=== PATIENT | male | born 1970 | race American Indian/Alaskan Native ===

== ENCOUNTER 2017-01-08 09:40 | Emergency (ER) | payer BC ==
[2017-01-08 09:53] VITALS: BP 135/96
--- NOTE | 2017-01-08 11:21 | Emergency Department Report ---
HPI - General Chief Complaint: Pain General Time Seen by Provider: 01/08/17 10:49 - HPI HPI: Patient here complaining of body pain and cold like symptoms for months. 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 He said he is taking over-the- counter allergy medication and it's not helping. Denies any fever or chills. Denies any nausea vomiting. Denies any chest pain or shortness of breath. Generalized aching at 8 out of 10. He reports nasal congestion and occasional cough that is worse at night. ED Past Medical Hx - Past Medical History Previous Medical History?: No - Surgical History Past Surgical History?: Yes Additional Surgical History: L ankle - Family History Family history: no significant - Social History Smoking Status: Current Every Day Smoker Substance Use Type: Alcohol, Non Opiate Pain, Other - Medications Home Medications: Home Medications Medication Instructions Recorded Confirmed Last Taken Type Ondansetron [Zofran Odt] 4 mg PO Q8HR #12 tab.rapdis 06/26/16 Unknown Rx Azithromycin [Zithromax Z-JOSIAH] 250 mg PO DAILY #6 tab 01/08/17 Unknown Rx Cetirizine HCl [ZyrTEC] 10 mg PO QDAY #14 capsule 01/08/17 Unknown Rx Fluticasone [Flonase] 1 spray NS QDAY #1 bottle 01/08/17 Unknown Rx Ibuprofen [Motrin] 600 mg PO Q8H PRN #15 tablet 01/08/17 Unknown Rx guaiFENesin/CODEINE [Robitussin AC] 10 ml PO QHS PRN #70 ml 01/08/17 Unknown Rx ED Review of Systems ROS: Stated complaint: BODY PAIN Other details as noted in HPI Comment: All other systems reviewed and negative Constitutional: denies: chills, fever Eyes: denies: eye pain, eye discharge ENT: congestion. denies: throat pain Respiratory: cough. denies: shortness of breath, SOB with exertion, SOB at rest , stridor, wheezing Cardiovascular: denies: chest pain, palpitations, edema, syncope Gastrointestinal: denies: abdominal pain, nausea, vomiting Musculoskeletal: arthralgia. denies: back pain Skin: denies: rash Neurological: denies: headache, weakness, numbness, paresthesias Physical Exam - Physical Exam Vital Signs: Vital Signs 01/08/17 09:50 Temperature 98.9 F Pulse Rate 64 Respiratory 20 Rate Blood Pressure 135/96 O2 Sat by Pulse 100 Oximetry General: This is a 46-year-old male well-nourished well-developed in no acute distress Physical Exam: Head: Normocephalic atraumatic Mouth: Moist, no pharyngeal exudate or erythema. Uvula is midline and oral airway is patent. No gingival enlargement or dental tenderness. No facial swelling. No peritonsillar abscesses. Neck: Supple, no C-spine tenderness, no tracheal deviation. Nontender to palpate. no adenopathy Ears: Bilateral TMs congested without erythema .bilateral EAC without any redness swelling or drainage Eyes: Bilateral pupils equal and reactive to light, bilateral EOM intact. Bilateral sclera and conjunctiva without injection. Normal accommodation Nose: Mucosa moist, positive congestion with erythema. Positive clear drainage. maxillary and frontal sinus tender to palpate. Lungs: Clear to auscultate bilaterally no rhonchi wheezes or rales. Normal work of breathing Abdomen: Soft, nontender to palpate. Normal bowel sounds in all quadrant. No CVA tenderness bilaterally extremity; No CCE. +2 pulses. No neurovascular compromise Cardiovascular: S1-S2, regular rate rhythm. No murmurs. Skin: clean Dry and intact no rash no lesions Psych: Normal mood and behavior ED Course Vital Signs 01/08/17 09:50 Temperature 98.9 F Pulse Rate 64 Respiratory 20 Rate Blood Pressure 135/96 O2 Sat by Pulse 100 Oximetry - Reevaluation(s) Reevaluation #1: 01/08/17 11:29 Patient stable throughout ED stay ED Medical Decision Making - Medical Decision Making ED course: I discussed the patient that he has sinus infection and will be treated with antibiotic and other medication. Patient was understanding of discharge diagnoses and treatment plan. He is been symptomatic for 2 months and has tried [id number] medication without any relief. Patient discharged home to follow up with his primary care physician which she does have one in one week. Discharged home with prescription for motrin, Zithromax, Flonase, Zyrtec and guaifenesin with codeine Critical care attestation.: If time is entered above; I have spent that time in minutes in the direct care of this critically ill patient, excluding procedure time. ED Disposition Clinical Impression: Cough Acute sinusitis Qualifiers: Sinusitis location: unspecified location Recurrence: not specified as recurrent Qualified Code(s): J01.90 - Acute sinusitis, unspecified Disposition: DISCHARGED TO HOME OR SELFCARE Is pt being admited?: No Does the pt Need Aspirin: No Condition: Stable Instructions: Sinusitis (ED), Acute Cough (ED) Additional Instructions: Take medication as prescribed Follow-up with your primary care physician in 7 days flush nostrils out with saline nasal wash Please do not drive or operate motor vehicle while taking cough medicine as this medication will cause drowsiness. Prescriptions: guaiFENesin/CODEINE [Robitussin AC] 10 ml PO QHS PRN #70 ml PRN Reason: Cough Azithromycin [Zithromax Z-JOSIAH] 250 mg PO DAILY #6 tab Cetirizine HCl [ZyrTEC] 10 mg PO QDAY #14 capsule Fluticasone [Flonase] 1 spray NS QDAY #1 bottle Ibuprofen [Motrin] 600 mg PO Q8H PRN #15 tablet PRN Reason: Pain Referrals: PRIMARY CARE, [Primary Care Provider] - 01/15/17 [facility] [Outside] - 01/15/17 Forms: Work/School Release Form(ED)
== END 2017-01-08 12:07 | disposition home or self-care (01) ==
LOC: ED 09:40
DX: J01.90 Acute sinusitis, unspecified (principal); F17.200 Nicotine dependence, unspecified, uncomplicated; Z79.899 Other long term (current) drug therapy; Z79.1 Long term (current) use of non-steroidal anti-inflammatories (NSAID); Z98.890 Other specified postprocedural states
CPT/HCPCS: 99282

== ENCOUNTER 2019-09-28 09:25 | Emergency (ER) | payer SELFPAY ==
[2019-09-28 09:30] VITALS: BP 139/100
--- NOTE | 2019-09-28 09:56 | Emergency Department Report ---
Minor Respiratory - HPI Chief Complaint: Upper Respiratory Infection Stated Complaint: WEAK/VOMIT/BODY PAIN Time Seen by Provider: 09/28/19 09:34 Duration: 3 Days Pain Location: Nose Severity: moderate Minor Respiratory: Yes Able to Tolerate Fluids, Yes Cough, Yes Sick Contacts, No Rhinorrhea, No Sore Throat, No Ear Pain, No Hemoptysis, No Chest Pain, No Shortness of Breath, No Fever Other History: This is a 49-year-old -[place] male who presents to the emergency room with body aches, nausea, chills, and fatigue for 3 days. Patient also reports a productive cough. Past medical history of hypertension but currently not on medication. Denies taking medication for symptomatic relief. Denies nausea, vomiting, diarrhea, chest pain, shortness of breath, or wheezing. ED Review of Systems ROS: Stated complaint: WEAK/VOMIT/BODY PAIN Other details as noted in HPI Constitutional: chills. denies: fever ENT: congestion. denies: ear pain, throat pain, hearing loss, epistaxis Respiratory: cough. denies: shortness of breath, wheezing Cardiovascular: denies: chest pain, palpitations Endocrine: no symptoms reported Gastrointestinal: denies: abdominal pain, nausea, diarrhea Musculoskeletal: myalgia. denies: back pain, joint swelling, arthralgia Skin: denies: rash, lesions Neurological: denies: headache, weakness, paresthesias Psychiatric: denies: anxiety, depression ED Past Medical Hx - Past Medical History Previous Medical History?: No - Surgical History Past Surgical History?: No Additional Surgical History: L ankle - Social History Smoking Status: Current Every Day Smoker Substance Use Type: Alcohol - Medications Home Medications: Home Medications Medication Instructions Recorded Confirmed Last Taken Type Ondansetron [Zofran Odt] 4 mg PO Q8HR #12 tab.rapdis 06/26/16 Unknown Rx Azithromycin [Zithromax Z-JOSIAH] 250 mg PO DAILY #6 tab 01/08/17 Unknown Rx Ibuprofen [Motrin] 600 mg PO Q8H PRN #15 tablet 01/08/17 Unknown Rx guaiFENesin/CODEINE [Robitussin AC] 10 ml PO QHS PRN #70 ml 01/08/17 Unknown Rx Cyclobenzaprine [Flexeril] 10 mg PO QHS PRN #10 tablet 03/16/19 Unknown Rx Ibuprofen [Motrin] 600 mg PO Q8H PRN #20 tablet 03/16/19 Unknown Rx Benzonatate [Tessalon Perles] 100 mg PO Q8HR PRN #30 capsule 09/28/19 Unknown Rx Cetirizine HCl [ZyrTEC 10mg cap] 10 mg PO QDAY #20 capsule 09/28/19 Unknown Rx Fluticasone [Flonase] 1 spray NS QDAY #1 bottle 09/28/19 Unknown Rx guaiFENesin [Guaifenesin ER] 1,200 mg PO DAILY #14 tab.er.12h 09/28/19 Unknown Rx Minor Respiratory Exam - Exam General: Vital signs noted. No distress. Alert and acting appropriately. HEENT: Yes Pharyngeal Erythema (erythematous posterior pharynx, uvula midline without swelling), Yes Moist Mucous Membranes, Yes Rhinorrhea (turbinates congested with clear discharge), No Pharyngeal Exudates, No Conjuctival Injection, No Frontal Tenderness, No Maxillary Tenderness Ear: Neither TM Bulge, Neither TM Erythema, Neither EAC Pain, Neither EAC Discharge Neck: Yes Supple, No Adenopathy Lungs: Yes Good Air Exchange, No Wheezes, No Ronchi, No Stridor, No Cough, No Labored Respirations, No Retractions, No Use of Accessory Muscles, No Other Abnormal Lung Sounds Heart: Yes Regular, No Murmur Abdomen: Yes Normal Bowel Sounds, No Tenderness, No Peritoneal Signs Skin: No Rash, No Edema Neurologic: Alert and oriented, no deficits. Musculoskeletal: Unremarkable. ED Course Vital Signs 09/28/19 09:28 Temperature 98.4 F Pulse Rate 98 H Respiratory 16 Rate Blood Pressure 139/100 O2 Sat by Pulse 96 Oximetry ED Medical Decision Making - Radiology Data Radiology results: report reviewed CHEST 2 VIEWS INDICATION / CLINICAL INFORMATION: cough. COMPARISON: None available. FINDINGS: SUPPORT DEVICES: None. HEART / MEDIASTINUM: No significant abnormality. LUNGS / PLEURA: There are some scattered calcified granulomata. There is a focal consolidation or pleural effusion. No pneumothorax. ADDITIONAL FINDINGS: No significant additional findings. IMPRESSION: 1. No acute findings. - Medical Decision Making 49 y.o. male that presents with URI symptoms. Patient examined by me and stable. No distress noted. Vitals stable. Past medical history of hypertension but currently not on medication. Chest xray has been obtained and dictated by radiologist with no acute findings. There is mild congestion on exam. Diastolic BP slightly elevated but patient is asymptomatic. Instructed to monitor blood pressure, DASH diet handout given, follow-up with a primary care doctor for continued care. Acute nasopharyngitis. Start Flonase, benzonatate, ceterizine, and mucinex. Discharged home stable. Encouraged to do supportive care for URI. Follow up with Primary Care Provider in 2-3 days. Critical care attestation.: If time is entered above; I have spent that time in minutes in the direct care of this critically ill patient, excluding procedure time. ED Disposition Clinical Impression: Cough in adult patient, Acute nasopharyngitis Disposition: TO HOME OR SELFCARE Is pt being admited?: No Condition: Stable Instructions: Upper Respiratory Infection (ED), Cold Symptoms (ED), DASH Eating Plan (ED) Additional Instructions: Increase fluid intake and rest. Wash hands frequently. Continue taking Tylenol or ibuprofen to control fever. F/U with Primary Care Provider. Return to ER if fever, SOB, or difficulty breathing after 48 hours of supportive care. Prescriptions: Fluticasone [Flonase] 1 spray NS QDAY #1 bottle guaiFENesin [Guaifenesin ER] 1,200 mg PO DAILY #14 tab.er.12h Benzonatate [Tessalon Perles] 100 mg PO Q8HR PRN #30 capsule PRN Reason: Cough Cetirizine HCl [ZyrTEC 10mg cap] 10 mg PO QDAY #20 capsule Referrals: [facility] [Outside] - 3-5 Days [facility] [Outside] - 3-[address] [facility] [Outside] - 3-5 Days Forms: Work/School Release Form(ED) Time of Disposition: 10:41
--- NOTE | 2019-09-28 10:31 | XRay Report ---
CHEST 2 VIEWS INDICATION / CLINICAL INFORMATION: cough. COMPARISON: None available. FINDINGS: SUPPORT DEVICES: None. HEART / MEDIASTINUM: No significant abnormality. LUNGS / PLEURA: There are some scattered calcified granulomata. There is a focal consolidation or ple ural effusion. No pneumothorax. ADDITIONAL FINDINGS: No significant additional findings. IMPRESSION: 1. No acute findings. Signer Name: Joey Peterson MD Signed: 09/28/2019 10:27 AM Workstation Name: [id number]
== END 2019-09-28 11:10 | disposition home or self-care (01) ==
LOC: ED 09:25
DX: J00 Acute nasopharyngitis [common cold] (principal); F17.200 Nicotine dependence, unspecified, uncomplicated; F10.10 Alcohol abuse, uncomplicated; Z98.890 Other specified postprocedural states; Z79.899 Other long term (current) drug therapy; Z88.5 Allergy status to narcotic agent
CPT/HCPCS: 71046